=== PATIENT | female | born 1955 | race Native Hawaiian/Other Pacific Islander ===

== ENCOUNTER 2017-11-30 19:46 | Emergency (ER) | payer OTHER ==
[~2017-11-30] VITALS: Ht 162.6 cm; Wt 118.4 kg
[~2017-11-30 19:46] MED LIST: LEVO0.0218 PO; METFORMIN ER1000 MG PO; VICTOZA18 MG/3 ML SC; ZESTRIL30 MG PO
[2017-11-30 21:09] VITALS: BP 183/78; TEMP 98.5
== END 2017-11-30 21:12 | disposition home or self-care (01) ==
LOC: ED 19:46
DX: M54.5 Low back pain (principal); S39.012A Strain of muscle, fascia and tendon of lower back, initial encounter; M51.36 Other intervertebral disc degeneration, lumbar region; X50.9XXA Other and unspecified overexertion or strenuous movements or postures, initial encounter
CPT/HCPCS: 96372; 99283; J1885

== ENCOUNTER 2020-08-16 18:56 | Outpatient (CLI) | payer OTHER | END 2020-08-16 22:59 | disposition home or self-care (01) | LOC: LABW 18:56 → LAB 18:56 | PROVIDERS: ATTEND Nurse Practitioner Family | DX: U07.1 COVID-19 (principal); Z11.59 Encounter for screening for other viral diseases; E66.9 Obesity, unspecified; I10 Essential (primary) hypertension; E11.9 Type 2 diabetes mellitus without complications | CPT/HCPCS: 87635; U0003 ==

== ENCOUNTER 2022-05-11 14:25 | Outpatient (CLI) | payer OTHER | END 2022-05-11 19:35 | disposition home or self-care (01) | LOC: MAMMO 14:25 | PROVIDERS: ATTEND Nurse Practitioner Family | DX: Z08 Encounter for follow-up examination after completed treatment for malignant neoplasm (principal); Z85.3 Personal history of malignant neoplasm of breast | CPT/HCPCS: G0279 ==

== ENCOUNTER 2022-12-11 13:53 | Emergency (ER) | payer OTHER ==
[~2022-12-11] VITALS: Ht 162.6 cm; Wt 117.0 kg
[2022-12-11 13:57] VITALS: BP 151/95; TEMP 97.3
== END 2022-12-11 15:10 | disposition home or self-care (01) ==
LOC: ED 13:53
DX: S90.32XA Contusion of left foot, initial encounter (principal); W22.8XXA Striking against or struck by other objects, initial encounter
CPT/HCPCS: 99283